=== PATIENT | male | born 1960 | race Hispanic/Latino ===

== ENCOUNTER 2023-01-11 07:24 | Day surgery (SDC) | payer OTHER ==
[2023-01-05 12:57] VITALS: BP 127/75
[2023-01-05 13:02] LABS: APPEARANCE,URINE CLEAR (CLEAR); BILIRUBIN,URINE NEGATIVE (NEGATIVE); COLOR,URINE YELLOW (YELLOW); GLUCOSE, URINE (UA) NEGATIVE (NEGATIVE); KETONES,URINE NEGATIVE (NEGATIVE); LEUKOCYTE ESTERASE ,URINE 25 Leu/uL (NEGATIVE); NITRATE,URINE NEGATIVE (NEGATIVE); OCCULT BLOOD,URINE NEGATIVE (NEGATIVE); PH,URINE 5.5 (5.0-8.0); PROTEIN,URINE NEGATIVE (NEGATIVE); UROBILINOGEN,URINE 0.2 mg/dL (0.2-1.0)
[2023-01-05 13:06] LABS: POTASSIUM 4.6 mmol/L (3.5-5.1)
[2023-01-05 13:13] LABS: BACTERIA,URINE RARE /HPF (None Seen); MUCUS,URINE RARE LPF (None Seen); RBC,URINE 0-1 /HPF (0-1)
[~2023-01-11] VITALS: Ht 168.9 cm; Wt 80.3 kg
[2023-01-11] VITALS (16 sets, daily range): BP systolic 101–138; BP diastolic 52–91
[2023-01-11] MEDS: CEFTRIAXONE 1G VIAL IVPB SCH ×2 (05:00→09:50)
[~2023-01-11 07:24] MED LIST: CHOL-34 PO; FOLI1TAB85 PO; HYDR12.54 PO; LEVO75CA5 PO; LISI40TA9 PO; METF-444 PO; OXYB10TA30 PO; SIMV40TA59 PO; TAMS-1 PO
[2023-01-11] MEDS ORDERED: 0.9%NACL 1000ML 1,000 ML IV ONE (07:59)
[2023-01-11] MEDS ORDERED: LIDOCAINE PF 100MG/5ML (2%) SYRINGE 5ML ONE (09:14)
[2023-01-11] MEDS ORDERED: FENTANYL CITRATE PF 50 MCG/1 ML 2ML VIAL ONE (09:15)
[2023-01-11] MEDS ORDERED: PROPOFOL 10 MG/ML 20ML VIAL IV ONE (09:15)
[2023-01-11] MEDS ORDERED: MIDAZOLAM HCL 1 MG/ML 2ML VIAL ONE (09:15)
[2023-01-11] MEDS ORDERED: DEXAMETHASONE SOD PHOSPHATE 4 MG/ML 1ML VIAL ONE (09:40)
[2023-01-11] MEDS ORDERED: ONDANSETRON 4MG INJ ONE (09:41)
== END 2023-01-11 11:29 | disposition home or self-care (01) ==
LOC: DAH 07:24
PROVIDERS: ATTEND Urology
DX: R97.20 Elevated prostate specific antigen [PSA] (principal); Z20.822 Contact with and (suspected) exposure to COVID-19; N40.0 Benign prostatic hyperplasia without lower urinary tract symptoms; E11.22 Type 2 diabetes mellitus with diabetic chronic kidney disease; I12.9 Hypertensive chronic kidney disease with stage 1 through stage 4 chronic kidney disease, or unspecified chronic kidney disease; N18.9 Chronic kidney disease, unspecified; K21.9 Gastro-esophageal reflux disease without esophagitis; E03.9 Hypothyroidism, unspecified; Z79.899 Other long term (current) drug therapy; Z79.01 Long term (current) use of anticoagulants; Z90.49 Acquired absence of other specified parts of digestive tract
CPT/HCPCS: 80048; 87088; 87426; 81001; 36415; 93005; 55700; 82948 ×3; 76872; 76942; A6260; J1100; A4663; J3010; J7030; J2001; J0696; J2250; J2704; J2405; A4215 ×2; A4649; A4223; A4222; A4221; A4600

== ENCOUNTER 2024-02-14 06:47 | Day surgery (SDC) | payer OTHER ==
[2024-02-08 11:13] VITALS: BP 152/84; PULSE 75; RESP 18
[2024-02-08 11:30] LABS: BASOPHILS # (AUTO) 0.05 K/uL (0.00-0.20); BASOPHILS % (AUTO) 0.6 % (0.0-5.0); EOSINOPHILS # (AUTO) 0.98 K/uL (0.00-0.70); EOSINOPHILS % (AUTO) 11.3 % (0.0-8.0); HEMATOCRIT 39.6 % (42-54); IMMATURE GRANULOCYTE ABSOLUTE 0.03 K/uL (0-1); LYMPHOCYTES % (AUTO) 23.2 % (21.0-51.0); MEAN CORPUSCULAR HEMOGLOBIN 29.9 pg (27.0-33.0); MEAN CORPUSCULAR HGB CONC 32.1 g/dL (32.0-36.0); MEAN CORPUSCULAR VOLUME 93.2 fL (79-99); MONOCYTES # (AUTO) 0.7 K/uL (0.1-1.0); MONOCYTES % (AUTO) 7.5 % (3.0-13.0); NEUTROPHILS % (AUTO) 57.1 % (40.0-77.0); PLATELET COUNT (AUTO) 259 K/uL (130-400); RED BLOOD CELL COUNT(AUTO) 4.25 MIL/uL (4.50-6.20); RED CELL DISTRIBUTION WIDTH 13.4 % (11.0-15.5); WHITE BLOOD COUNT (AUTO) 8.7 K/uL (4.8-10.8)
[2024-02-08 11:32] LABS: APPEARANCE,URINE CLEAR (CLEAR); BILIRUBIN,URINE NEGATIVE (NEGATIVE); COLOR,URINE LIGHT-YELLOW (YELLOW); GLUCOSE, URINE (UA) NEGATIVE (NEGATIVE); KETONES,URINE NEGATIVE (NEGATIVE); LEUKOCYTE ESTERASE ,URINE 25 Leu/uL (NEGATIVE); NITRATE,URINE NEGATIVE (NEGATIVE); OCCULT BLOOD,URINE NEGATIVE (NEGATIVE); PH,URINE 5.5 (5.0-8.0); PROTEIN,URINE NEGATIVE (NEGATIVE); UROBILINOGEN,URINE 0.2 mg/dL (0.2-1.0)
[2024-02-08 11:36] LABS: ADD UA MICROSCOPIC YES
[2024-02-08 11:38] LABS: CREATININE 1.9 mg/dL (0.5-1.3); POTASSIUM 4.4 mmol/L (3.5-5.1)
[2024-02-08 11:40] LABS: INR <= 0.93 (0.85-1.15); PROTHROMBIN TIME 10.4 SEC (9.6-11.6)
[2024-02-08 11:42] LABS: PARTIAL THROMBOPLASTIN TIME 30.1 SEC (26.3-35.5)
[2024-02-08 11:53] LABS: RBC,URINE 0-1 /HPF (0-1)
[2024-02-08 11:54] LABS: BACTERIA,URINE None Seen /HPF (None Seen)
[~2024-02-14] VITALS: Ht 167.6 cm; Wt 78.9 kg
[2024-02-14] VITALS (14 sets, daily range): BP systolic 131–150; BP diastolic 75–97; PULSE 56–82; RESP 12–18
[~2024-02-14 06:47] MED LIST changes: +AMLO-257 PO; +CEFTRIAXONE 1G VIAL IVPB SCH; -CHOL-34 PO; -FOLI1TAB85 PO; +LEVO-70 PO; -LISI40TA9 PO; -METF-444 PO; -OXYB10TA30 PO; -SIMV40TA59 PO; -TAMS-1 PO
[2024-02-14] MEDS ORDERED: CEFTRIAXONE 1G VIAL ONE (07:54)
[2024-02-14] MEDS ORDERED: ROCURONIUM BROMIDE 10MG/1ML 5ML VL ONE ×2 (08:57→10:25)
[2024-02-14] MEDS ORDERED: PROPOFOL 10 MG/ML 20ML VIAL IV ONE (08:57)
[2024-02-14] MEDS ORDERED: LIDOCAINE PF 100MG/5ML (2%) SYRINGE 5ML ONE (08:57)
[2024-02-14] MEDS ORDERED: FENTANYL CITRATE PF 50 MCG/1 ML 2ML VIAL ONE (08:58)
[2024-02-14] MEDS ORDERED: DEXAMETHASONE SOD PHOSPHATE 10MG/ML 1ML VIAL ONE (10:12)
[2024-02-14] MEDS ORDERED: ONDANSETRON 4MG INJ ONE (10:12)
[2024-02-14] MEDS: CEFAZOLIN SODIUM 2 GM VIAL IVPB ONE (10:15)
[2024-02-14] MEDS ORDERED: KETAMINE 50MG/ML SYRINGE 50 MG/ML DISP.SYRIN ONE (10:29)
[2024-02-14] MEDS ORDERED: PHENYLEPHRINE HCL 10 MG/ML 1ML VIAL IV ONE (10:36)
[2024-02-14] MEDS ORDERED: GLYCOPYRROLATE 0.2 MG/ML 5 ML VIAL ONE (11:49)
[2024-02-14] MEDS ORDERED: NEOSTIGMINE METHYLSULFATE 1MG/ML IV ONE (11:49)
[2024-02-14] MEDS: MEPERIDINE-PF 25 MG/ML SYG ONE (12:16)
[2024-02-14] MEDS ORDERED: BACITRACIN 1 EACH PACKET TP ONE (13:12)
[2024-02-14] MEDS: 0.9%NACL 1000ML 1,000 ML IV ONE (13:18)
== END 2024-02-14 13:35 | disposition home or self-care (01) ==
LOC: DAH 06:47
PROVIDERS: ATTEND Urology
DX: N40.1 Benign prostatic hyperplasia with lower urinary tract symptoms (principal); R32 Unspecified urinary incontinence; I12.9 Hypertensive chronic kidney disease with stage 1 through stage 4 chronic kidney disease, or unspecified chronic kidney disease; N18.9 Chronic kidney disease, unspecified; E66.9 Obesity, unspecified; E03.9 Hypothyroidism, unspecified; K21.9 Gastro-esophageal reflux disease without esophagitis; Z79.899 Other long term (current) drug therapy
CPT/HCPCS: 80048; 85025; 85610; 85730; 87088; 81001; 36415; 71045; 93005; 52648; 82948 ×2; 88305; A4663; J7030 ×2; C1758; A4354; J3010; J1100; J3490 ×4; J2001; J0696; J2704; J2405; J2710; J2175; J2371; J0690; A4315; A4358; A4930; A4215; A4223; A4213; A4222; A4221; A4600